=== PATIENT | male | born 1975 | race Caucasian/White ===

== ENCOUNTER 2018-03-15 13:27 | Outpatient (CLI) | payer OTHER ==
--- NOTE | 2018-03-16 09:38 | MRI Report ---
Procedure Date: 03/15/2018 Accession Number: [id number] / [id number] Procedure: MRI - Lumbar Spine W/O CPT Code: FULL RESULT: EXAM: MRI LUMBAR SPINE WITHOUT CONTRAST EXAM DATE: 03/15/2018 02:06 PM. CLINICAL HISTORY: Radiculopathy, lumbar region. Paresthesia of skin. Low back pain since November 2017. COMPARISON: None. TECHNIQUE: Multiplanar, multisequence T1-weighted and fluid-sensitive sequences of the lumbar spine from T12 to S1 without contrast. Other: None. FINDINGS: Alignment: Mild, 2.5 mm, retrolisthesis is seen at L4-L5. Spinal Canal: The conus terminates at L2-L3. The conus medullaris and cauda equina are unremarkable. The spinal canal is adequate. Bone Marrow: Five [id number] lumbar vertebral bodies are assumed. No gross fractures or bone lesions. No bone marrow replacement. An oval 15 mm hemangioma is seen in the L3 vertebral body, and 6 mm hemangioma in the L4 vertebral body. Disk Levels/Facets: T12-L1: Unremarkable on sagittal series. L1-L2: Unremarkable on sagittal series. L2-L3: Unremarkable. L3-L4: Unremarkable. L4-L5: Mild loss of disk space height and T2-hypointense disk signal is seen. Mild retrolisthesis. Minimal circumferential disk bulge is present. Dorsal and right paracentral inferior disk protrusion is seen behind the L5 superior endplate. Effacement of proximal descending right L5 nerve root is seen with moderate lateral recess stenosis. L5-S1: T2-hypointense disk signal is seen. Mild dorsal and dorsolateral subligamentous disk protrusion is seen. Small inferior extrusion behind the S1 superior endplate is seen with associated annular fissure. Minimal effacement of the ventral thecal sac and descending right S1 nerve root is seen. No canal or lateral recess stenosis. Musculature: Normal. No edema or fatty atrophy. Other: The partially visualized retroperitoneum is unremarkable. IMPRESSION: 1. L4-L5: Mild degenerative disk change. Minimal retrolisthesis. Dorsal and right paracentral disk protrusion. Right moderate lateral recess stenosis with mass effect on descending L5 nerve root. 2. L5-S1: Mild degenerative disk change. No stenosis. Comment: The following findings are so common in adults without low back pain that while we report their presence, they must be interpreted with caution and in the context of the clinical situation. (Reference Mariah et al, Spine 2001) Prevalence of findings in patients without low back pain: Disk degeneration (any evidence): 92% Disk desiccation/T2 signal loss: 83% Disk height loss: 56% Disk bulge: 64% Disk protrusion: 32% Annular tear/high intensity zone: 38% RADIA
== END 2018-03-15 13:28 | disposition home or self-care (01) ==
LOC: DI 13:27
PROVIDERS: ATTEND Family Medicine
DX: M51.26 Other intervertebral disc displacement, lumbar region (principal); M51.36 Other intervertebral disc degeneration, lumbar region; M51.27 Other intervertebral disc displacement, lumbosacral region; M43.16 Spondylolisthesis, lumbar region
CPT/HCPCS: 72148

== ENCOUNTER 2018-08-18 12:57 | Emergency (ER) | payer OTHER ==
--- NOTE | 2018-08-18 13:09 | ED Physician Documentation ---
History of Present Illness - Stated complaint Stated Complaint: ALLERGIC REACTION - History obtained from History obtained from: Patient - History of Present Illness Timing: Other (He is allergic to chocolate and penicillin. Without specific etiology he developed hives yesterday morning which are worsening despite taking Benadryl at home twice. There is no shortness of breath or throat swelling.) Review of Systems Constitutional: denies: Fever, Chills Nose: denies: Rhinorrhea / runny nose, Congestion Throat: denies: Sore throat Cardiac: denies: Chest pain / pressure Respiratory: denies: Dyspnea PD PAST MEDICAL HISTORY - Present Medications Home Medications: Ambulatory Orders Medication Instructions Recorded Confirmed predniSONE [Deltasone] 60 mg PO DAILY 5 Days tablet 08/18/18 PD ED PE NORMAL - Vitals Vital signs reviewed: Yes - General General: Alert and oriented X 3 - HEENT HEENT: Pharynx benign - Respiratory Respiratory: No respiratory distress, Clear bilaterally - Abdomen Abdomen: Non tender - Derm Derm: Other (He has hives especially on the lower trunk and upper extremities) - Neuro Neuro: Alert and oriented X 3, Normal speech Departure - Departure Disposition: 01 Home, Self Care Clinical Impression: Hives Condition: Good Record reviewed to determine appropriate education?: Yes Instructions: ED Urticaria Prescriptions: predniSONE [Deltasone] 60 mg PO DAILY 5 Days tablet Comments: Call your doctor to arrange a follow-up appointment, make the next available appointment. In the interim, return anytime if worse or if new symptoms develop.
[2018-08-18 13:15] VITALS: BP 126/88
[2018-08-18] MEDS: predniSONE 20 MG TABLET PO STA (13:28)
== END 2018-08-18 13:29 | disposition home or self-care (01) ==
LOC: ED 12:57
DX: L50.9 Urticaria, unspecified (principal); Z88.0 Allergy status to penicillin
CPT/HCPCS: 99283; J7512

== ENCOUNTER 2018-08-19 12:20 | Emergency (ER) | payer OTHER ==
[2018-08-19 12:45] VITALS: BP 129/99
[2018-08-19] MEDS ORDERED: CHERRY SYRUP 10 ML UDC PO ONE (15:04)
[2018-08-19] MEDS: DEXAMETHASONE 10 MG/ML VIAL PO STA (15:04)
--- NOTE | 2018-08-19 15:14 | ED Physician Documentation ---
PD HPI SKIN - Stated complaint Stated Complaint: RASH - Chief complaint Chief Complaint: Allergic Rx - History obtained from History obtained from: Patient - History of Present Illness Timing - onset: How many days ago (2) Timing - details: Still present Location: [facility] Quality / character: Itchy, Discolored Recently seen: Emergency Dept (Yesterday.) - Treatment prior to arrival Treatment prior to arrival: Benadryl and prednisone. - Additional information Additional information: The patient is a 43-year-old male who presents with hives that started 2 days ago and has persisted since that time. He has been using Benadryl without relief, but he takes a subtherapeutic dose of 25 mg. He was seen in the emergency department yesterday and was prescribed prednisone which he has taken today, without relief. In fact his rash has become more extensive today, involving his neck, head, and ears in addition to his trunk and extremities. He denies shortness of breath, but states that his throat has been "scratchy." The only other medication he takes his fluoxetine which he started 1-1/2 months ago, and increased the dosage 2 weeks ago. He reports a remote history of hives as a child, stating he has not allergy to chocolate. Review of Systems Constitutional: denies: Fever Eyes: denies: Irritation Ears: denies: Ear pain, Tinnitus/ringing Nose: denies: Congestion Throat: reports: Sore throat (Mildly "scratchy" throat.) Cardiac: denies: Chest pain / pressure Respiratory: denies: Dyspnea, Cough GI: denies: Abdominal Pain, Nausea, Vomiting : denies: Dysuria Skin: reports: Rash Musculoskeletal: denies: Neck pain, Back pain, Extremity swelling Neurologic: denies: Focal weakness, Numbness, Headache PD PAST MEDICAL HISTORY - Past Medical History Endocrine/Autoimmune: None - Present Medications Home Medications: Ambulatory Orders Medication Instructions Recorded Confirmed Fluoxetine HCl 1 tab ORAL DAILY 08/18/18 08/18/18 predniSONE [Deltasone] 60 mg PO DAILY 5 Days tablet 08/18/18 - Allergies Allergies/Adverse Reactions: Allergies Allergy/AdvReac Type Severity Reaction Status Date / Time Penicillins Allergy Hives Verified 08/19/18 12:45 - Social History Does the pt smoke?: No Smoking Status: Never smoker Does the pt drink ETOH?: No Does the pt have substance abuse?: No - Immunizations Immunizations are current?: Yes - POLST Patient has POLST: No PD ED PE NORMAL - Vitals Vital signs reviewed: Yes (Mild hypertension initially.) - General General: Alert and oriented X 3, Well developed/nourished - HEENT HEENT: Atraumatic, EOMI, Moist mucous membranes, Pharynx benign - Neck Neck: Supple, no meningeal sign, No adenopathy, No JVD - Cardiac Cardiac: RRR, No murmur - Respiratory Respiratory: No respiratory distress, Clear bilaterally - Abdomen Abdomen: Soft, Non tender - Back Back: No CVA TTP - Derm Derm: Other (There is an urticarial type rash involving his trunk, all extremities, and neck. The most predominant location is his lateral trunk and axillary regions bilaterally.) - Extremities Extremities: No edema, No calf tenderness / cord - Neuro Neuro: Alert and oriented X 3, No motor deficit, Normal speech Results - Vitals Vitals: Vital Signs - 24 hr 08/19/18 12:42 Temperature 36.7 C Heart Rate 99 Respiratory 15 Rate Blood Pressure 129/99 H O2 Saturation 97 Oxygen O2 Source Room air PD MEDICAL DECISION MAKING - ED course Complexity details: reviewed old records, re-evaluated patient, considered differential, d/w patient ED course: The patient's rash is most likely due to fluoxetine, since that is the only medication he has been taking prior to the onset of his rash. Environmental allergens are considered, but are less likely. His allergic response is mostly dermatologic, without respiratory symptoms. Treatment in the emergency department included administration of dexamethasone 10 mg orally, and ranitidine 150 mg orally. I discussed with him the diagnosis, ongoing treatment with therapeutic doses of Benadryl and prednisone. He will discontinue fluoxetine and will discuss the medication with his psychiatrist. I discussed with him potentially worrisome signs or symptoms that should prompt reevaluation in the emergency department. Departure - Departure Disposition: 01 Home, Self Care Clinical Impression: Allergic urticaria Condition: Stable Instructions: ED Urticaria Follow-Up: JOSÉ MIGUEL SEN DO [Primary Care Provider] - Comments: Discontinue fluoxetine. Continue taking Benadryl, up to 50 mg 4 times daily to help with itching. Continue to take prednisone as previously prescribed yesterday. Follow-up with your primary physician within 1 week. Call to schedule appointment. Return to the emergency department if you develop increasing rash or itching, increasing difficulty swallowing, shortness of breath, or otherwise worsening symptoms. Discharge Date/Time: 08/19/18 15:28
== END 2018-08-19 15:28 | disposition home or self-care (01) ==
LOC: ED 12:20
DX: L50.0 Allergic urticaria (principal)
CPT/HCPCS: 99283; A9270